=== PATIENT | male | born 1970 | race Caucasian/White ===

== ENCOUNTER 2022-05-16 08:28 | Outpatient (CLI) | payer OTHER, SELFPAY ==
[2022-05-16 13:41] LABS: Chloride* 103 mmol/L (96-114); Sodium* 139 mmol/L (135-149)
[2022-05-16 13:44] LABS: Alanine Aminotransferase* 44 U/L (4-50); Blood Urea Nitrogen* 20 mg/dL (7-30); Carbon Dioxide* 31 mmol/L (20-32); Cholesterol* 140 mg/dL (90-199); Creatinine* 0.9 mg/dL (0.5-1.5); Estimated Glomerular Filt Rate 103 ml/min
[2022-05-16 13:45] LABS: Calcium* 9.1 mg/dL (8.4-10.6); Glucose* 96 mg/dL (60-115); HDL Cholesterol* 56 mg/dL (>=40); LDL Cholesterol Calculated 54 mg/dL (<100); Triglycerides* 148 mg/dL (40-149)
== END 2022-05-16 08:29 | disposition home or self-care (01) ==
PROVIDERS: PCP Physician Assistant Medical; Visit Provider Family Medicine
DX: E78.00 Pure hypercholesterolemia, unspecified (principal)
CPT/HCPCS: 80048; 80061; 84460

== ENCOUNTER 2022-10-19 13:32 | Outpatient (CLI) | payer OTHER, SELFPAY ==
--- NOTE | 2022-10-19 13:45 | CRLHL7_ITS ---
For Patients: As a result of the Century Cures Act, medical imaging exams and procedure reports are released immediately into your electronic medical record. You may view this report before your referring provider. If you have questions, please contact your health care provider. DATE: 10/19/2022. CLINICAL HISTORY: Pulsatile tinnitus. TECHNIQUE: 3D TOF MRA of the head was performed. 3D MIP reformats were performed at an independent workstation. COMPARISON: None available. FINDINGS: The petrous, cavernous, and supraclinoid segments of the internal carotid arteries are within normal limits. The anterior and middle cerebral arteries are within normal limits. The anterior communicating artery is visualized and within normal limits. The intracranial vertebral arteries, basilar trunk, and posterior cerebral arteries are within normal limits. No intracranial proximal large vessel occlusion or flow-limiting luminal stenosis. There is flow related enhancement within what appears to be the left posterior condylar vein, which extends posteriorly from the region of the jugular bulb through the posterior aspect of the foramen magnum. In addition, on the lowest slices included on the field of view of the examination, there is partial visualization of prominent serpiginous structures with flow related enhancement adjacent to the exiting posterior condylar vein. IMPRESSION: Flow related enhancement within the left posterior condylar vein, with partial visualization of prominent vascular structures with flow related enhancement adjacent to the exiting posterior condylar vein at the level of the foramen magnum. While this is favored to reflect high flow within the left posterior condylar vein, a known source of pulsatile tinnitus, with secondary drainage into the paravertebral veins, and underlying arterial-venous shunting is not definitively excluded. Dedicated catheter angiogram should be considered to exclude an arterial-venous shunting lesion in the upper cervical spine or at the level of the foramen magnum. Dictated by Otf Mcbride MD @ 10/19/2022 9:25:50 PM (Electronically Signed)
--- NOTE | 2022-10-19 15:00 | CRLHL7_ITS ---
For Patients: As a result of the Cures Act, medical imaging exams and procedure reports are released immediately into your electronic medical record. You may view this report before your referring provider. If you have questions, please contact your health care provider. CLINICAL HISTORY: PULSATILE TINNITUS TECHNIQUE: The carotid circulations and the vertebral arteries in the neck were examined with churchill-scale ultrasound, color-flow and Doppler spectral analysis. Degrees of stenosis were determined using SRU 2002 Consensus Panel Criteria. FINDINGS: Sonographic images demonstrate no evidence of atherosclerotic plaque formation or suspicious soft tissue mass. There was antegrade blood flow demonstrated within the vertebral arteries and the subclavian arteries demonstrated a normal triphasic waveform. The spectral Doppler tracings of the common carotid, internal and external carotid arteries demonstrate no abnormal turbulence or spectral broadening. There was no significant elevation of peak systolic blood flow which would indicate a hemodynamically-significant stenosis by SRU criteria. The ICA/CCA peak systolic velocity ratio measures 1.1 on the right and 0.9 on the left. IMPRESSION: Normal carotid ultrasound. Dictated by Goerge Cottrell MD @ 10/19/2022 3:39:08 PM (Electronically Signed)
== END 2022-10-19 13:33 | disposition home or self-care (01) ==
LOC: MRI 13:33
PROVIDERS: PCP Family Medicine; Visit Provider Otolaryngology
DX: H93.A9 Pulsatile tinnitus, unspecified ear (principal)
CPT/HCPCS: 70544; 93880

== ENCOUNTER 2023-06-11 13:12 | Outpatient (CLI) | payer BC, SELFPAY | END 2023-06-11 13:13 | disposition home or self-care (01) | PROVIDERS: PCP Family Medicine; Visit Provider Nurse Practitioner Family | DX: Z00.00 Encounter for general adult medical examination without abnormal findings (principal); R10.9 Unspecified abdominal pain; E78.00 Pure hypercholesterolemia, unspecified; E66.9 Obesity, unspecified | CPT/HCPCS: 80076; 83690; 86140 ==

== ENCOUNTER 2023-08-24 13:22 | Outpatient (CLI) | payer BC, SELFPAY | END 2023-08-24 13:23 | disposition home or self-care (01) | PROVIDERS: PCP Family Medicine; Visit Provider Physician Assistant Medical | DX: Z00.00 Encounter for general adult medical examination without abnormal findings (principal); E78.00 Pure hypercholesterolemia, unspecified; E66.9 Obesity, unspecified; Z13.1 Encounter for screening for diabetes mellitus; Z12.5 Encounter for screening for malignant neoplasm of prostate | CPT/HCPCS: 80053; 80061; 84153 ==

== ENCOUNTER 2024-09-11 16:26 | Outpatient (CLI) | payer BC, SELFPAY | END 2024-09-11 16:27 | disposition home or self-care (01) | PROVIDERS: PCP Family Medicine; Visit Provider Physician Assistant Medical | DX: Z00.00 Encounter for general adult medical examination without abnormal findings (principal); E78.00 Pure hypercholesterolemia, unspecified; R73.03 Prediabetes; E66.9 Obesity, unspecified; R41.89 Other symptoms and signs involving cognitive functions and awareness; Z12.5 Encounter for screening for malignant neoplasm of prostate; Z13.0 Encounter for screening for diseases of the blood and blood-forming organs and certain disorders involving the immune mechanism | CPT/HCPCS: 80053; 80061; 82306; 82607; 84443; G0103 ==